=== PATIENT | female | born 1955 | race Caucasian/White ===

== ENCOUNTER 2025-01-04 08:00 | Outpatient (RCR) | payer MEDICARE, SELFPAY | END 2025-01-04 09:06 | disposition home or self-care (01) | LOC: HO.PT 08:00 | PROVIDERS: PCP Family Medicine; Visit Provider Internal Medicine Gastroenterology | DX: M62.89 Other specified disorders of muscle (principal) | CPT/HCPCS: 97110; 97112; 97140; 97162 ==